=== PATIENT | female | born 1960 | race African-American/Black ===

== ENCOUNTER 2018-11-05 23:09 | Emergency (ER) | payer MEDICAID ==
[~2018-11-05] VITALS: Ht 162.6 cm; Wt 73.0 kg
[2018-11-05 23:11] VITALS: BP 140/100
== END 2018-11-06 04:20 | disposition left against medical advice (07) ==
LOC: ER 23:09
DX: Z53.21 Procedure and treatment not carried out due to patient leaving prior to being seen by health care provider (principal)